=== PATIENT | male | born 1975 | race Native Hawaiian/Other Pacific Islander ===

== ENCOUNTER 2019-05-13 09:53 | Day surgery (SDC) | payer OTHER | END 2019-05-13 12:10 | disposition home or self-care (01) | LOC: OR 09:53 | PROC: 3E0R33Z Introduction of Anti-inflammatory into Spinal Canal, Percutaneous Approach (ICD-10-PCS; principal; 2019-05-13) | PROC: B01BYZZ Fluoroscopy of Spinal Cord using Other Contrast (ICD-10-PCS; 2019-05-13) | DX: M50.123 Cervical disc disorder at C6-C7 level with radiculopathy (principal) | CPT/HCPCS: J1020 ==